=== PATIENT | female | born 1965 | race Caucasian/White ===

== ENCOUNTER 2018-04-21 05:24 | Day surgery (SDC) | payer OTHER ==
[2018-04-21] MEDS ORDERED: NEOSTIGMINE 3 MG/3 ML SYRINGE (06:26)
[2018-04-21] MEDS ORDERED: ROCURONIUM 50 MG INJ (06:26)
[2018-04-21] MEDS ORDERED: MIDAZOLAM 1 MG/ML 2 ML INJ (06:26)
[2018-04-21] MEDS ORDERED: LIDOCAINE 2% (SDV) 5 ML INJ (06:26)
[2018-04-21] MEDS ORDERED: GLYCOPYRROLATE 0.4 MG INJ (06:26)
[2018-04-21] MEDS ORDERED: FENTAnyl 50 MCG/ML VIAL (06:26)
[2018-04-21] MEDS ORDERED: PROPOFOL 20 ML (06:26)
[2018-04-21] MEDS ORDERED: ONDANSETRON 4 MG INJ ×2 (06:27→10:10)
[2018-04-21] MEDS ORDERED: DEXAMETHASONE 4 MG/ML 5 ML INJ (06:27)
[2018-04-21] MEDS ORDERED: LIDOCAINE 1% (MPF) 30 ML INJ (06:33)
[2018-04-21] MEDS ORDERED: BUPIVACAINE 0.5% (SDV) 30 ML INJ (06:33)
[2018-04-21] MEDS ORDERED: POLYMYXIN/BACITRACIN 1L IRRIG (06:34)
[2018-04-21] MEDS ORDERED: CEFAZOLIN 2 GM/50 ML (PMX) 50 ML IVPB (07:10)
[2018-04-21] MEDS: POLYMYXIN/BACITRACIN 1L IRRIG IRR (07:30)
[2018-04-21] MEDS ORDERED: SUGAMMADEX SODIUM 200 MG/2 ML VIAL IV (08:37)
[2018-04-21] MEDS ORDERED: CEFAZOLIN 1 GM INJ (08:42)
[2018-04-21] MEDS ORDERED: CLINDAMYCIN 900 MG/D5W (PMX) 50 ML IVPB (09:10)
[2018-04-21] MEDS: BUPIVACAINE 0.5% (MPF) 30 ML INJ INJ (09:40)
[2018-04-21] MEDS ORDERED: MEPERIDINE 25 MG INJ (10:09)
[2018-04-21] MEDS: MEPERIDINE 25 MG INJ IV (10:23)
[2018-04-21] MEDS: ONDANSETRON 4 MG INJ IV (10:24)
[2018-04-21] MEDS ORDERED: EPHEDrine SULFATE 50 MG/5 ML SYG IV (10:30)
[2018-04-21] MEDS ORDERED: MIDAZOLAM 1 MG/ML 2 ML INJ IV (10:30)
[2018-04-21] MEDS ORDERED: morphine (1 MG/ML) 10ML SYRINGE IV (10:30)
[2018-04-21] MEDS ORDERED: DIPHENHYDRAMINE 50 MG INJ IV (10:30)
[2018-04-21] MEDS ORDERED: KETOROLAC 30 MG INJ IV (10:30)
[2018-04-21] MEDS ORDERED: OXYCODONE/ACETAMINOPHEN (5/325) TAB PO (10:30)
[2018-04-21] MEDS ORDERED: HYDROmorphONE 1 MG/5 ML IV SYRINGE IV ×3 (10:30)
[2018-04-21] MEDS ORDERED: ALBUTEROL 0.083% (NEB) 2.5 MG/3 ML AMP HHN (10:30)
[2018-04-21] MEDS ORDERED: FENTAnyl 50 MCG/ML VIAL IV ×3 (10:30)
[2018-04-21] MEDS ORDERED: METOCLOPRAMIDE 10 MG INJ IV (10:30)
[2018-04-21] MEDS ORDERED: hydrALAzine 20 MG INJ IV (10:30)
== END 2018-04-21 13:10 | disposition home or self-care (01) ==
LOC: SDS 05:24
DX: Q69.2 Accessory toe(s) (principal); M89.8X7 Other specified disorders of bone, ankle and foot; E78.5 Hyperlipidemia, unspecified
CPT/HCPCS: 28288; 73620; 73630-LT; 84703; 88305; 88311